=== PATIENT | male | born 2000 | race Caucasian/White ===

== ENCOUNTER 2021-10-02 15:28 | Emergency (ER) | payer BC ==
[2021-10-02] MEDS ORDERED: Bacitracin 1 PK ONE (17:35)
== END 2021-10-02 17:40 | disposition home or self-care (01) ==
LOC: CSHERS 15:28
DX: S93.402A Sprain of unspecified ligament of left ankle, initial encounter (principal); S80.02XA Contusion of left knee, initial encounter; V29.9XXA Motorcycle rider (driver) (passenger) injured in unspecified traffic accident, initial encounter; Y93.55 Activity, bike riding